=== PATIENT | female | born 1935 | race Caucasian/White ===

== ENCOUNTER 2024-04-04 13:06 | Observation (INO) | payer MEDICARE, BC ==
[2024-04-04 13:55] LABS: BASOPHILS ABSOLUTE AUTO 0.12 10^3/uL (0.00-0.50); BASOPHILS PERCENT AUTO 1.7 % (0-1); EOSINOPHILS ABSOLUTE AUTO 0.15 10^3/uL (0.00-1.50); EOSINOPHILS PERCENT AUTO 2.2 % (0-6); HEMATOCRIT 32.7 % (37.0-47.0); HEMOGLOBIN 10.5 g/dL (12.0-16.0); IMMATURE GRAN ABSOLUTE AUTO 0.03 10^3/uL (0.00-0.49); IMMATURE GRAN PERCENT AUTO 0.4 % (0.0-4.9); LYMPHOCYTES ABSOLUTE AUTO 1.15 10^3/uL (0.60-5.00); LYMPHOCYTES PERCENT AUTO 16.7 % (24-44); MEAN CORPUSCULAR HEMOGLOBIN 29.9 pg (27.0-32.0); MEAN CORPUSCULAR HGB CONC 32.1 g/dL (32.0-36.0); MEAN CORPUSCULAR VOLUME 93.2 fL (83.0-97.0); MONOCYTES ABSOLUTE AUTO 0.78 10^3/uL (0.00-1.50); MONOCYTES PERCENT AUTO 11.3 % (0-10); NEUTROPHILS ABSOLUTE AUTO 4.67 x10^3/uL (1.80-8.00); NEUTROPHILS PERCENT AUTO 67.7 % (41-71); PLATELET COUNT,PLT 167 10^3/uL (150-400); RED BLOOD CELL COUNT 3.51 x10^6/uL (4.00-5.50); WHITE BLOOD CELL COUNT,WBC 6.9 10^3/uL (4.0-11.0)
[2024-04-04 14:09] LABS: ALANINE AMINOTRANSFERASE,ALT 17 U/L (12-78); ALBUMIN 3.4 g/dL (3.4-5.0); ALKALINE PHOSPHATASE 126 U/L (46-116); ASPARTATE AMNIOTRANSFERASE,AST 17 U/L (15-37); BILIRUBIN TOTAL 0.6 mg/dL (0.0-1.0); BLOOD UREA NITROGEN,BUN 22 mg/dL (7-18); C-REACTIVE PROTEIN < 0.50 mg/dL (<=0.50); CARBON DIOXIDE,CO2 31 mmol/L (21-32); CHLORIDE,CL 103 mEq/L (98-106); CREATININE 1.1 mg/dL (0.6-1.0); ESTIMATED GFR 48 mL/min (>=60); GLUCOSE RANDOM 106 mg/dL (75-99); MAGNESIUM 1.5 mg/dL (1.8-2.4); POTASSIUM,K 4.2 mEq/L (3.5-5.0); PROTEIN TOTAL,TP 7.2 g/dL (6.4-8.2); SODIUM,NA 142 mEq/L (136-145)
[2024-04-04 15:29] LABS: APPEARANCE,URINE SLIGHTLY CLOUDY (CLEAR); BILIRUBIN,URINE NEGATIVE (NEGATIVE); COLOR,URINE YELLOW (YELLOW); GLUCOSE,URINE NEGATIVE (NEGATIVE); KETONES,URINE NEGATIVE (NEGATIVE); LEUKOCYTE ESTERASE,URINE SMALL (NEGATIVE); NITRITE,URINE NEGATIVE (NEGATIVE); OCCULT BLOOD,URINE NEGATIVE (NEGATIVE); PROTEIN,URINE NEGATIVE (NEGATIVE); UROBILINOGEN,URINE 0.2 EU/dL (0.2-1.0)
[2024-04-04 15:37] LABS: BACTERIA,URINE FEW /HPF (NOT SEEN); RBC,URINE 0-5 /HPF (0-5); SQUAMOUS EPITHELIAL CELLS,UR FEW /HPF (NOT SEEN); WBC,URINE >100 /HPF (0-5)
[2024-04-04] MEDS ORDERED: cefTRIAXone 1 GM Vial IVPUSH SCH (15:45)
[2024-04-04] MEDS ORDERED: Acetaminophen 650 MG Supp RECTAL PRN (16:06)
[2024-04-04] MEDS ORDERED: Ondansetron 4 MG/2 ML SDV IV PRN (16:06)
[2024-04-04] MEDS ORDERED: Sodium Chloride 0.9% 10 ML Syringe FLUSH PRN (16:06)
[2024-04-04] MEDS ORDERED: Acetaminophen 325 MG Tab PO PRN (16:06)
[2024-04-04] MEDS ORDERED: Docusate Sodium 100 MG Cap PO PRN (16:06)
[2024-04-04] MEDS ORDERED: Ondansetron 4 MG Tab.DIS PO PRN (16:06)
[2024-04-04] MEDS: cefTRIAXone 1 GM Vial IVPUSH ONE (16:56)
[2024-04-04] MEDS: LORazepam 0.5 MG Tab PO SCH (19:20)
[2024-04-04] MEDS: Potassium Chloride 20 MEQ Tab.ER PO SCH (19:20)
[2024-04-04] MEDS: Propranolol 10 MG Tab PO SCH (19:20)
[2024-04-04] MEDS: atorvaSTATin 10 MG Tab PO SCH (19:20)
[2024-04-04] MEDS: Latanoprost 0.005% Ophth Soln 2.5 ML Bottle EYEBOTH SCH (19:21)
[2024-04-04] MEDS ORDERED: Non-Formulary Medication 1 Each (Potassium Chloride [Potassium Chloride] 20 MEQ Tablet.Er) PO SCH (20:00)
[2024-04-04] MEDS ORDERED: atorvaSTATin 10 MG Tab PO SCH (20:00)
[2024-04-04] MEDS ORDERED: PROPRANOLOL 40 MG PO SCH (20:00)
[2024-04-04] MEDS ORDERED: LORazepam 0.5 MG Tab PO SCH (20:00)
[2024-04-05 07:15] LABS: BASOPHILS ABSOLUTE AUTO 0.12 10^3/uL (0.00-0.50); BASOPHILS PERCENT AUTO 2.2 % (0-1); EOSINOPHILS ABSOLUTE AUTO 0.11 10^3/uL (0.00-1.50); HEMATOCRIT 28.3 % (37.0-47.0); HEMOGLOBIN 9.3 g/dL (12.0-16.0); IMMATURE GRAN ABSOLUTE AUTO 0.07 10^3/uL (0.00-0.49); IMMATURE GRAN PERCENT AUTO 1.3 % (0.0-4.9); LYMPHOCYTES ABSOLUTE AUTO 0.88 10^3/uL (0.60-5.00); LYMPHOCYTES PERCENT AUTO 16.2 % (24-44); MEAN CORPUSCULAR HGB CONC 32.9 g/dL (32.0-36.0); MEAN CORPUSCULAR VOLUME 91.3 fL (83.0-97.0); MONOCYTES ABSOLUTE AUTO 0.53 10^3/uL (0.00-1.50); MONOCYTES PERCENT AUTO 9.7 % (0-10); NEUTROPHILS ABSOLUTE AUTO 3.73 x10^3/uL (1.80-8.00); NEUTROPHILS PERCENT AUTO 68.6 % (41-71); PLATELET COUNT,PLT 142 10^3/uL (150-400); WHITE BLOOD CELL COUNT,WBC 5.4 10^3/uL (4.0-11.0)
[2024-04-05] MEDS: Hydrochlorothiazide/Triamterene 25-37.5 Tab PO SCH (07:32)
[2024-04-05] MEDS: Sertraline 25 MG Tab PO SCH (07:33)
[2024-04-05 07:51] LABS: ALANINE AMINOTRANSFERASE,ALT 13 U/L (12-78); ALBUMIN 3.1 g/dL (3.4-5.0); ALKALINE PHOSPHATASE 104 U/L (46-116); ASPARTATE AMNIOTRANSFERASE,AST 15 U/L (15-37); BILIRUBIN TOTAL 0.7 mg/dL (0.0-1.0); BLOOD UREA NITROGEN,BUN 19 mg/dL (7-18); CALCIUM 8.8 mg/dL (8.4-10.1); CARBON DIOXIDE,CO2 31 mmol/L (21-32); CHLORIDE,CL 104 mEq/L (98-106); CREATININE 0.9 mg/dL (0.6-1.0); EST CRCL DRUG DOSING (CG) 38.13 mL/min; GLUCOSE RANDOM 104 mg/dL (75-99); POTASSIUM,K 3.7 mEq/L (3.5-5.0); PROTEIN TOTAL,TP 6.3 g/dL (6.4-8.2); SODIUM,NA 144 mEq/L (136-145)
[2024-04-05 07:58] LABS: C-REACTIVE PROTEIN < 0.50 mg/dL (<=0.50); ESTIMATED GFR 61 mL/min (>=60)
[2024-04-05] MEDS ORDERED: Non-Formulary Medication 1 Each (Sertraline [Zoloft] 50 MG Tablet) PO SCH (08:00)
[2024-04-05] MEDS ORDERED: Hydrochlorothiazide/Triamterene 25-37.5 Tab PO SCH (08:00)
[2024-04-05] MEDS: cefTRIAXone 1 GM Vial IVPUSH ONE (10:57)
[2024-04-05] MEDS ORDERED: Enoxaparin 40 MG/0.4 ML Syringe SUBCUT SCH (12:00)
== END 2024-04-05 11:25 | disposition home or self-care (01) ==
LOC: CC.ED 13:06 → CC.MS 15:11 → UNDOADMOB 15:35 → CC.MS 15:35 → UNDOADMOB 16:02 → UNDODISOB 04-05 11:25
PROVIDERS: ADMIT Nurse Practitioner Family; ATTEND Nurse Practitioner Family
DX: R20.0 Anesthesia of skin (principal); N30.00 Acute cystitis without hematuria; R53.1 Weakness
CPT/HCPCS: 36415; 70450; 71045; 80053; 81001; 83735; 85025; 85730; 86140; 87086; 87088; 87186; 93005; 93010; 96374; 96376; 99223; 99239; 99285; A9270-GY; G0378; J0696